=== PATIENT | female | born 1995 | race Caucasian/White ===

== ENCOUNTER 2018-11-11 19:32 | Emergency (ER) | payer OTHER ==
--- NOTE | 2018-11-11 19:36 | ER Report ---
History and Physical Time Seen By MD: 19:35 HPI/ROS CHIEF COMPLAINT: Leg laceration HISTORY OF PRESENT ILLNESS: 23-year-old female presents ambulatory to the ER complaining of leg laceration. She states she dropped a knife when cutting limes to make margaritas. It hit her in the leg. She has a longitudinal laceration of her left lateral palmer just below the knee approximately 2.7 cm long. Bleeding is controlled. Patient states she recently had a tetanus booster. Allergies: Coded Allergies: No Known Drug Allergies (Unverified , 11/11/18) Reviewed Nurses Notes: Yes Old Medical Records Reviewed: Yes Constitutional Vital Sign - Last 24 Hours 11/11/18 11/11/18 19:36 20:00 Temp 99.4 Pulse 102 Resp 16 B/P (MAP) 142/82 138/78 (98) Pulse Ox 92 O2 Delivery Room Air Physical Exam General appearance: Alert no distress. Respiratory: Chest is non tender, lungs are clear to auscultation. Cardiac: Regular rate and rhythm Extremities: Examination of the left lower extremity reveals a longitudinal laceration on the lateral aspect of the upper calf/palmer area. It's approximately 2.8 cm in length. It gapes open quite widely and extends into the subcutaneous tissue. The stool neurovascular functions intact DIFFERENTIAL DIAGNOSIS: After history and physical exam differential diagnosis was considered for laceration, foreign body Medical Decision Making ED Course/Re-evaluation ED Course Patient was admitted to an examination room. H&P was done. The differential diagnoses was considered. On clinical examination. Patient has a lateral leg laceration. It was repaired as noted below. Wound care was discussed, suture removal will be in 7 days Procedure: Laceration repair. Verbal consent was obtained from the patient. The 2.8 cm laceration on the upper aspect left lower lateral leg was anesthetized in the usual fashion. The wound was scrubbed, draped and explored to its base with a gloved finger. There were no deep structures involved. No tendon injury was identified. The wound was repaired with in 2 layers a single subcutaneous Vicryl 5-0 suture was used to approximate the wound edges. The wound edges were approximated with 5-0 Prolene 4 sutures. The wound repair was intermediate. The procedure was performed by myself. Decision to Disposition Date: Nov 11, 2018 Decision to Disposition Time: 20:09 Depart Departure Latest Vital Signs Vital Signs Date Time Temp Pulse Resp B/P (MAP) Pulse Ox O2 Delivery O2 Flow Rate FiO2 11/11/18 20:00 138/78 (98) 11/11/18 19:36 99.4 102 16 92 Room Air Impression: Primary Impression: Laceration of left lower leg Condition: Improved Disposition: HOME OR SELF-CARE Patient Instructions: Laceration (ED) Additional Instructions: Perform daily wound care. Watch for signs of infection Have stitches removed in 7 days Apply sunscreen for the next 6 month to this affected area Problem Qualifiers Primary Impression: Laceration of left lower leg Encounter type: initial encounter Qualified Codes: S81.812A - Laceration without foreign body, left lower leg, initial encounter NISHA PIKE DO Nov 11, 2018 19:36
[2018-11-11 20:00] VITALS: BP 138/78
== END 2018-11-11 20:13 | disposition home or self-care (01) ==
LOC: ER 19:45
DX: S81.812A Laceration without foreign body, left lower leg, initial encounter (principal); W26.0XXA Contact with knife, initial encounter
CPT/HCPCS: 99283